=== PATIENT | male | born 1975 | race Caucasian/White ===

== ENCOUNTER 2021-07-27 00:55 | Emergency (ER) | payer MEDICAID ==
[~2021-07-27] VITALS: Ht 185.4 cm; Wt 81.6 kg
[~2021-07-27 00:55] MED LIST: ASPI-1822 PO; NITR0.4T2 SL
[2021-07-27 00:58] VITALS: BP 123/70
--- NOTE | 2021-07-27 01:25 | NUR ---
LABS BEING DRAWN
[2021-07-27 01:34] LABS: BASOPHILS % (AUTO) 0.6 % (0.0-2.0); EOSINOPHILS # (AUTO) 0.2 K/uL (0-0.4); EOSINOPHILS % (AUTO) 3.9 % (0.0-4.0); HEMATOCRIT 35.7 % (36-52); LYMPHOCYTES % (AUTO) 17.5 % (20.5-51.1); MEAN CORPUSCULAR HEMOGLOBIN 27 pg (27-31); MEAN CORPUSCULAR HGB CONC 34 g/dL (33-37); MEAN CORPUSCULAR VOLUME 79.1 fL (80-94); MONOCYTES # (AUTO) 0.7 K/uL (0.8-1.0); MONOCYTES % (AUTO) 12.1 % (1.7-9.3); NEUTROPHILS # (AUTO) 3.6 K/uL (1.8-7.7); NEUTROPHILS % (AUTO) 65.9 % (42.2-75.2); PLATELET COUNT (AUTO) 322 K/uL (140-450); RED BLOOD CELL COUNT(AUTO) 4.51 MIL/uL (4.20-6.10); RED CELL DISTRIBUTION WIDTH 18.3 % (11.6-13.7); WHITE BLOOD COUNT (AUTO) 5.5 K/uL (4.8-10.8)
[2021-07-27 01:49] LABS: POTASSIUM 4.1 mmol/L (3.5-5.1)
[2021-07-27 01:50] LABS: CARBON DIOXIDE 26.1 mmol/L (21-32); CREATININE 0.7 mg/dL (0.6-1.3)
[2021-07-27 01:51] LABS: TOTAL BILIRUBIN 0.2 mg/dL (0.0-1.0)
[2021-07-27 01:52] LABS: ALBUMIN 3.4 g/dL (3.4-5.0)
--- NOTE | 2021-07-27 03:59 | NUR ---
pt was sleeping. no signs of distress or complaints of pain.
[2021-07-27 05:55] VITALS: BP 101/78
--- NOTE | 2021-07-27 06:00 | NUR ---
Patient discharged with v/s stable. Written and verbal after care instructions given and explained. Patient verbalized understanding. Ambulatory with steady gait. All questions addressed prior to discharge. Advised to follow up with PMD.
== END 2021-07-27 05:55 | disposition home or self-care (01) ==
LOC: MED 00:55
DX: R07.9 Chest pain, unspecified (principal); R42 Dizziness and giddiness; I51.9 Heart disease, unspecified; Z86.73 Personal history of transient ischemic attack (TIA), and cerebral infarction without residual deficits; F17.210 Nicotine dependence, cigarettes, uncomplicated; F12.10 Cannabis abuse, uncomplicated; Z88.6 Allergy status to analgesic agent
CPT/HCPCS: 36415; 71045; 80053; 83880; 84484; 85025; 93005; 99285; Q0092